=== PATIENT | female | born 1960 | race Asian ===

== ENCOUNTER 2017-04-08 12:29 | Emergency (ER) | payer MEDICAID ==
[~2017-04-08] VITALS: Ht 147.3 cm; Wt 60.6 kg
[2017-04-08 12:38] VITALS: BP 119/74
[2017-04-08] MEDS ORDERED: NAPR-1154 PO (13:16)
[2017-04-08] MEDS ORDERED: CYCL-1 PO (13:16)
== END 2017-04-08 14:01 | disposition home or self-care (01) ==
LOC: ER 12:31
DX: G89.29 Other chronic pain (principal); M25.512 Pain in left shoulder; M54.6 Pain in thoracic spine
CPT/HCPCS: 93005; 99283